=== PATIENT | female | born 1990 | race American Indian/Alaskan Native ===

== ENCOUNTER 2018-12-12 19:46 | Emergency (ER) | payer MEDICAID ==
[2018-12-12] MEDS ORDERED: NACL 0.9% 1000 ML 1,000 ML IV ONE ×2 (20:03→20:17)
[2018-12-12 20:27] LABS: Basophils % (Auto) 0.3 % (0.0-1.8); Eosinophils # (Auto) 0.3 K/mm3 (0.0-0.4); Eosinophils % (Auto) 3.6 % (0.0-4.3); Hematocrit 38.6 % (30.3-42.9); Hemoglobin 12.6 gm/dl (10.1-14.3); Lymphocytes # (Auto) 4.3 K/mm3 (1.2-5.4); Lymphocytes % (Auto) 50.7 % (13.4-35.0); Mean Corpuscular HGB Conc 33 % (30-34); Mean Corpuscular Volume 83 fl (79-97); Monocytes # (Auto) 0.5 K/mm3 (0.0-0.8); Monocytes % (Auto) 5.4 % (0.0-7.3); Platelet Count 373 K/mm3 (140-440); Red Blood Count 4.63 M/mm3 (3.65-5.03)
--- NOTE | 2018-12-12 20:31 | Emergency Department Report ---
ED HPI - General Chief complaint: Vaginal Bleeding Stated complaint: VAGINAL BLEEDING Time Seen by Provider: 12/12/18 20:01 Source: patient, EMS Mode of arrival: Stretcher Limitations: No Limitations - History of Present Illness Initial comments: This is a 28-year-old female nontoxic, well nourished in appearance, no acute signs of distress presents to the ED with c/o of vaginal bleeding x1 day. Patient stated see [facility] and last appointment was last week and had a ultrasound that showed a empty gestational sac. Patient denies any abdominal or pelvic pain. Patient denies any vaginal discharge or foul odor. Patient denies any nausea, vomiting, chest pain, shortness of breathe, fever, chills, headache, stiff neck, numbness, tingling. Patient denies any urinary symptoms. Patient denies any allergies. MD Complaint: vaginal bleeding -: This evening Radiation: none Severity scale (0 -10): 0 Improves with: none Worsens with: none Associated symptoms: vaginal bleeding. denies: nausea/vomiting, vaginal discharge, abdominal pain, dysuria, headache, vision changes, malaise, dysparuenia, rash, seizure, shortness of breath, syncope, weakness Vaginal bleeding: clots :: Yes Number of weeks : 11 Pre- care: followed by OB - Related Data Previous Rx's Medication Instructions Recorded Last Taken Type HYDROcodone/APAP 5-325 [Sebring 1 each PO Q6HR PRN #20 tablet 07/04/13 Unknown Rx 5/325 mg] cephALEXin [Keflex] 500 mg PO Q6H #40 capsule 07/04/13 Unknown Rx Methylergonovine [Methergine] 0.2 mg PO Q8H #6 tablet 12/13/18 Unknown Rx Sulfamethoxazole/Trimethoprim 1 each PO BID #14 tablet 12/13/18 Unknown Rx [Bactrim DS TAB] Allergies Allergy/AdvReac Type Severity Reaction Status Date / Time No Known Allergies Allergy Unverified 07/04/13 09:07 ED Review of Systems ROS: Stated complaint: VAGINAL BLEEDING Other details as noted in HPI Constitutional: denies: chills, fever Eyes: denies: eye pain, eye discharge, vision change ENT: denies: ear pain, throat pain Respiratory: denies: cough, shortness of breath, wheezing Cardiovascular: denies: chest pain, palpitations Endocrine: no symptoms reported Gastrointestinal: denies: abdominal pain, nausea, diarrhea Genitourinary: abnormal menses. denies: urgency, dysuria, discharge Musculoskeletal: denies: back pain, joint swelling, arthralgia Skin: denies: rash, lesions Neurological: denies: headache, weakness, paresthesias Psychiatric: denies: anxiety, depression Hematological/Lymphatic: denies: easy bleeding, easy bruising ED Past Medical Hx - Past Medical History Previous Medical History?: No Hx Hypertension: No Hx Congestive Heart Failure: No Hx Diabetes: No Hx Deep Vein Thrombosis: No Hx Renal Disease: No Hx Sickle Cell Disease: No Hx Seizures: No Hx Asthma: No Hx COPD: No Hx HIV: No - Surgical History Past Surgical History?: No - Social History Smoking Status: Current Every Day Smoker Substance Use Type: Alcohol - Medications Home Medications: Home Medications Medication Instructions Recorded Confirmed Last Taken Type HYDROcodone/APAP 5-325 [S[place]ring 1 each PO Q6HR PRN #20 tablet 07/04/13 08/04/15 Unknown Rx 5/325 mg] cephALEXin [Keflex] 500 mg PO Q6H #40 capsule 07/04/13 08/04/15 Unknown Rx Methylergonovine [Methergine] 0.2 mg PO Q8H #6 tablet 12/13/18 Unknown Rx Sulfamethoxazole/Trimethoprim 1 each PO BID #14 tablet 12/13/18 Unknown Rx [Bactrim DS TAB] ED Physical Exam - General Limitations: No Limitations General appearance: alert, in no apparent distress - Head Head exam: Present: atraumatic, normocephalic - Neck Neck exam: Present: normal inspection, full ROM. Absent: tenderness, meningismus, lymphadenopathy - Respiratory Respiratory exam: Present: normal lung sounds bilaterally. Absent: respiratory distress, wheezes, rales, rhonchi, stridor, chest wall tenderness, accessory muscle use, decreased breath sounds, prolonged expiratory - Cardiovascular Cardiovascular Exam: Present: regular rate, normal rhythm, normal heart sounds. Absent: bradycardia, tachycardia, irregular rhythm, systolic murmur, diastolic murmur, rubs, gallop - GI/Abdominal GI/Abdominal exam: Present: soft, normal bowel sounds. Absent: distended, tenderness, guarding, rebound, rigid, diminished bowel sounds - External exam: Present: other (maintenance service supervisor Akilah RN present during exam). Absent: erythema, swelling, lesions, lacerations, ecchymosis, bleeding Speculum exam: Present: vaginal bleeding, tissue, other (maintenance service supervisor Akilah RN present during exam). Absent: erythema, vaginal discharge, cervical discharge, foreign body, laceration Bi-manual exam: Present: normal bi-manual exam, other (maintenance service supervisor Akilah RN present during exam). Absent: cervical motion tendernes, adnexal tenderness, adnexal mass, uterine enlargement, uterine tenderness - Extremities Exam Extremities exam: Present: normal inspection, full ROM - Back Exam Back exam: Present: normal inspection, full ROM. Absent: tenderness, CVA tenderness (R), CVA tenderness (L), muscle spasm, paraspinal tenderness, vertebral tenderness, rash noted - Neurological Exam Neurological exam: Present: alert, oriented X3, normal gait - Psychiatric Psychiatric exam: Present: normal affect, normal mood - Skin Skin exam: Present: warm, dry, intact, normal color. Absent: rash ED Course Vital Signs 12/12/18 12/12/18 12/12/18 20:14 20:30 21:09 Temperature Pulse Rate 96 H 98 H 94 H Respiratory 15 14 Rate Blood Pressure 101/63 102/63 Blood Pressure 101/63 [Left] O2 Sat by Pulse 100 Oximetry 12/12/18 12/12/18 12/12/18 21:30 22:00 22:30 Temperature Pulse Rate 82 87 98 H Respiratory 12 13 18 Rate Blood Pressure 93/55 103/61 105/70 Blood Pressure [Left] O2 Sat by Pulse Oximetry 12/12/18 12/13/18 12/13/18 23:00 00:58 01:00 Temperature 98.9 F Pulse Rate 85 78 Respiratory 18 16 Rate Blood Pressure 113/72 99/50 Blood Pressure 99/58 [Left] O2 Sat by Pulse 100 Oximetry 12/13/18 01:01 Temperature Pulse Rate Respiratory Rate Blood Pressure 115/79 Blood Pressure [Left] O2 Sat by Pulse Oximetry - Reevaluation(s) Reevaluation #1: 12/12/18 20:31 Patient is speaking in full sentences with no signs of distress noted. Reevaluation #2: 12/12/18 22:26 Patient started to have pelvic pains. Vital signs are currently stable patient is not in any signs of distress currently. I will give patient morphine for pain. Reevaluation #3: 12/13/18 02:12 Patient is resting comfortably with no signs of distress noted. - Consultations Consultation #1: 12/12/18 23:16 Patient has been consulted with Kevin Olivia about patient history, physical exam, and labs/US report and stated patient to get methargine and will come and see patient. Consultation #2: 12/13/18 02:34 Kevin Olivia examined patient and stated patient can be discharged with follow- up and to discharge with Methergine. ED Medical Decision Making - Lab Data Result diagrams: 12/12/18 20:13 - Medical Decision Making This is a 28-year-old female presents with spontaneous miscarriage and UTI. Patient is stable and was examined by me. Normal abdominal exam. US OB obtained and dictated by the radiologist. Ua obtained. Quantative serum test obtained. Patient notified of the US report with no questions noted by the patient. Patient was instructed f/u with [facility] in 2-3 days. Kevin Olivia examined patient and give discharge instructions for patient. RH factor positive. Labs within normal limits. At time of discharge, the patient does not seem toxic or ill in appearance. No acute signs of distress noted. Patient agrees to discharge treatment plan of care. No further questions noted by the patient. Critical care attestation.: If time is entered above; I have spent that time in minutes in the direct care of this critically ill patient, excluding procedure time. ED Disposition Clinical Impression: Spontaneous miscarriage UTI (urinary tract infection) Qualifiers: Urinary tract infection type: site unspecified Hematuria presence: without hematuria Qualified Code(s): N39.0 - Urinary tract infection, site not specified Disposition: DC-01 TO HOME OR SELFCARE Is pt being admited?: No Does the pt Need Aspirin: No Condition: Stable Instructions: Urinary Tract Infection in Women (ED), Spontaneous Miscarriage (ED), Methylergonovine (By mouth) Additional Instructions: Follow-up with OBGYN Aly Olivia in 2-3 days or if symptoms worsen and continue return to emergency room as soon as possible. Prescriptions: Sulfamethoxazole/Trimethoprim [Bactrim DS TAB] 1 each PO BID #14 tablet Methylergonovine [Methergine] 0.2 mg PO Q8H #6 tablet Referrals: PRIMARY CARE, [Primary Care Provider] - 3-5 Days ALY ISIDRO MD [Staff Physician] - 3-5 Days [facility] [Provider Group] - 3-5 Days Forms: Work/School Release Form(ED)
--- NOTE | 2018-12-12 21:40 | Ultrasound Report ---
ULTRASOUND OBSTETRIC INDICATION / CLINICAL INFORMATION: vaginal bleeding. Clinical Gestational Age (GA): 15 weeks 6 days TECHNIQUE: Transabdominal and Transvaginal. COMPARISON: None available. FINDINGS: No intrauterine identified. Endometrial complex appears prominent and thickened measuring 1 5 mm. There is some Doppler vascularity of the endometrium. ADNEXA: No significant abnormality. FREE FLUID: None. ADDITIONAL FINDINGS: None. IMPRESSION: 1. No intrauterine identified. 2. Prominent endometrial complex with increased vascularity. It can be difficult to distinguish endom etrial clots from retained products of conception. Clinical correlation is recommended. Signer Name: Lois Hernandez MD Signed: 12/12/2018 9:35 PM Workstation Name: [id number]
[2018-12-12] MEDS ORDERED: MORPHINE IV ONE (22:25)
[2018-12-12] MEDS ORDERED: METHERGINE IM ONE (23:12)
[2018-12-13] MEDS ORDERED: NACL 0.9% 1000 ML 1,000 ML IV ONE (01:06)
[2018-12-13] MEDS ORDERED: METHERGINE IM ONE (01:28)
[2018-12-13 02:01] LABS: Bacteria,Urine 2+ /HPF (Negative); Bilirubin,Urine NEG (Negative); Blood,Urine LG (Negative); Color,Urine Red (Yellow); Urobilinogen,Urine < 2.0 mg/dL (<2.0)
[2018-12-13 02:08] LABS: RBC,Urine > 182.0 /HPF (0.0-6.0); WBC,Urine > 182.0 /HPF (0.0-6.0)
[2018-12-13 03:57] VITALS: BP 122/82
== END 2018-12-13 03:40 | disposition home or self-care (01) ==
LOC: ED 19:46
DX: O03.9 Complete or unspecified spontaneous abortion without complication (principal); O23.41 Unspecified infection of urinary tract in pregnancy, first trimester; O99.331 Smoking (tobacco) complicating pregnancy, first trimester; Z3A.11 11 weeks gestation of pregnancy
CPT/HCPCS: 36415; 76801; 76817; 81001; 84702; 85025; 86900; 86901; 87086; 88305; 96372; 96374; 99285; J2210; J2270; J7030